=== PATIENT | female | born 1985 | race Caucasian/White ===

== ENCOUNTER → 2017-06-24 | Outpatient (CLI) | payer BC | END | disposition home or self-care (01) | LOC: LAB.O 08:10 | PROVIDERS: ATTEND Family Medicine | DX: D51.3 Other dietary vitamin B12 deficiency anemia (principal); E55.9 Vitamin D deficiency, unspecified; R53.82 Chronic fatigue, unspecified; D50.9 Iron deficiency anemia, unspecified; R73.09 Other abnormal glucose ==

== ENCOUNTER → 2017-08-09 | Outpatient (CLI) | payer BC | LOC: LAB.O 16:46 | PROVIDERS: ATTEND Family Medicine | DX: D64.9 Anemia, unspecified (principal); D50.9 Iron deficiency anemia, unspecified ==

== ENCOUNTER → 2017-08-28 | Outpatient (CLI) | payer BC | END | disposition home or self-care (01) | LOC: GMAL 17:21 | PROVIDERS: ATTEND Family Medicine | DX: J30.9 Allergic rhinitis, unspecified (principal) ==

== ENCOUNTER → 2018-06-14 | Outpatient (CLI) | payer BC | LOC: GMAL 14:35 | PROVIDERS: ATTEND Family Medicine | DX: Z00.00 Encounter for general adult medical examination without abnormal findings (principal) ==

== ENCOUNTER 2018-07-07 14:05 | Emergency (ER) | payer BC, OTHER ==
[2018-07-07 14:34] VITALS: TEMP 98.3; O2SAT 100
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
[2018-07-07] MEDS ORDERED: predniSONE 20 MG TAB PO ONE (15:44)
[2018-07-07] MEDS ORDERED: ACETAMINOPHEN-CAFF-BUTALBITAL 1 EA TAB PO ONE (15:44)
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
[2018-07-07 16:01] VITALS: BP 141/94
== END 2018-07-07 16:01 | disposition home or self-care (01) ==
LOC: ER 14:05
DX: S16.1XXA Strain of muscle, fascia and tendon at neck level, initial encounter (principal); R51 Headache; V49.49XA Driver injured in collision with other motor vehicles in traffic accident, initial encounter; Y92.410 Unspecified street and highway as the place of occurrence of the external cause
CPT/HCPCS: 71046; 72040; 81001; 81025; J7512

== ENCOUNTER → 2018-09-26 | Outpatient (CLI) | payer BC | LOC: GMAL 16:59 | PROVIDERS: ATTEND Family Medicine | DX: D51.9 Vitamin B12 deficiency anemia, unspecified (principal); D50.9 Iron deficiency anemia, unspecified; E55.9 Vitamin D deficiency, unspecified ==

== ENCOUNTER → 2019-01-19 | Outpatient (CLI) | payer BC | LOC: LAB.O 10:36 | PROVIDERS: ATTEND Nurse Practitioner Family | DX: A57 Chancroid (principal) ==